=== PATIENT | female | born 1955 | race Caucasian/White ===

== ENCOUNTER 2019-08-13 08:14 | Outpatient (CLI) | payer BC, OTHER ==
[2019-08-13] MEDS ORDERED: OMNIPAQUE 350 MG/ML, 100ML BOTTLE ONE (15:31)
[2019-09-25] MEDS ORDERED: UBID100C24 PO (08:46)
[2019-09-25] MEDS ORDERED: GINK60TA PO (08:46)
[2019-09-25] MEDS ORDERED: MULT1TAB60 PO (08:46)
[2019-09-25] MEDS ORDERED: CHOL10003 PO (08:46)
[2019-09-25] MEDS ORDERED: [UNRECOGNIZED DRUG - OTHER] PO (08:46)
[2019-09-25] MEDS ORDERED: ASTA4CAP PO (08:46)
[2019-09-25] MEDS ORDERED: KRIL500C PO (08:46)
[2019-09-25] MEDS ORDERED: LACT1CAP35 PO (08:46)
== END 2019-08-13 23:59 | disposition home or self-care (01) ==
LOC: CFH 08:14
PROVIDERS: ATTEND Obstetrics & Gynecology
DX: K80.20 Calculus of gallbladder without cholecystitis without obstruction (principal); K76.0 Fatty (change of) liver, not elsewhere classified; M43.26 Fusion of spine, lumbar region; R19.09 Other intra-abdominal and pelvic swelling, mass and lump
CPT/HCPCS: 74177; 82565; Q9967

== ENCOUNTER → 2019-09-25 | Outpatient (CLI) | payer BC ==
[~2019-09-25] MED LIST: ASTA4CAP PO; CHOL10003 PO; GINK60TA PO; KRIL500C PO; LACT1CAP35 PO; MULT1TAB60 PO; UBID100C24 PO; [UNRECOGNIZED DRUG - OTHER] PO
[2019-09-25 09:14] LABS: BASOPHILS # (AUTO) 0.03 x10^3/uL (0-0.1); BASOPHILS % (AUTO) 1 % (0-1); EOSINOPHILS # (AUTO) 0.05 x10^3/uL (0-0.4); EOSINOPHILS % (AUTO) 1 % (1-7); LYMPHOCYTES # (AUTO) 0.98 x10^3/uL (1-3.4); LYMPHOCYTES % (AUTO) 22 % (22-44); MD NO; MEAN CORPUSCULAR HEMOGLOBIN 31.2 pg (27.0-34.8); MEAN CORPUSCULAR HGB CONC 34.5 g/dL (32.4-35.8); MEAN CORPUSCULAR VOLUME 90.4 fL (80-100); MEAN PLATELET VOLUME 9.1 fL (7.4-10.4); MONOCYTES # (AUTO) 0.53 x10^3/uL (0.2-0.8); MONOCYTES % (AUTO) 12 % (2-9); NEUTROPHILS # (AUTO) 2.91 x10^3/uL (1.8-6.8); NEUTROPHILS % (AUTO) 65 % (42-75); PLATELET COUNT 209 x10^3/uL (130-400); RED BLOOD COUNT 5.22 x10^6/uL (3.82-5.3)
[2019-09-25 09:20] LABS: ALANINE AMINOTRANSFERASE 32 U/L (12-78); ALBUMIN 3.5 g/dL (3.4-5.0); ANION GAP 5 mmol/L (5-15); CHLORIDE 110 mmol/L (98-107); CREATININE 0.94 mg/dL (0.55-1.02)
[2019-09-25 09:23] LABS: ALKALINE PHOSPHATASE 59 U/L (45-117); BILIRUBIN,TOTAL 0.4 mg/dL (0.2-1.0); TOTAL PROTEIN 6.9 g/dL (6.4-8.2)
[2019-09-25 09:28] LABS: INTERNATIONAL NORMALIZED RATIO 0.93 (0.93-1.1); PROTHROMBIN TIME 9.9 Seconds (9.6-11.5)
== END | disposition home or self-care (01) ==
LOC: STAR 07:58
PROVIDERS: ATTEND Obstetrics & Gynecology
DX: Z01.818 Encounter for other preprocedural examination (principal); R19.00 Intra-abdominal and pelvic swelling, mass and lump, unspecified site; R87.810 Cervical high risk human papillomavirus (HPV) DNA test positive; N95.0 Postmenopausal bleeding; R87.619 Unspecified abnormal cytological findings in specimens from cervix uteri; Z85.038 Personal history of other malignant neoplasm of large intestine
CPT/HCPCS: 36415; 71046; 80053; 85025; 85610; 85730; 93005

== ENCOUNTER 2019-09-29 09:10 | Day surgery (SDC) | payer BC ==
[~2019-09-29] VITALS: Ht 167.6 cm; Wt 79.4 kg
[2019-09-29] MEDS ORDERED: LACTATED RINGERS 1,000 ML IV SCH (09:40)
[2019-09-29 09:51] VITALS: BP 119/89
[2019-09-29] MEDS ORDERED: CEFOTETAN PMX 2GM/50ML 50 ML IV STA (09:51)
[2019-09-29] MEDS ORDERED: LIDOCAINE-MPF 1%, 2ML INFIL ONE (10:00)
[2019-09-29] MEDS ORDERED: SCOPOLAMINE 1MG PATCH TD SCH (10:00)
[2019-09-29] MEDS ORDERED: FAMOTIDINE 20 MG TABLET PO ONE (10:00)
[2019-09-29] MEDS ORDERED: PROPOFOL 10 MG/ML, 20ML ONE (12:54)
[2019-09-29] MEDS ORDERED: ROPIvacaine/PF 0.5%, 30 ML ONE (12:54)
[2019-09-29] MEDS ORDERED: DEXAMETHASONE 4 MG/ML, 1ML ONE (12:54)
[2019-09-29] MEDS ORDERED: GLYCOPYRROLATE 0.2MG/1ML, 5ML ONE (12:54)
[2019-09-29] MEDS ORDERED: FENTANYL PF 250 MCG/5ML ONE (12:54)
[2019-09-29] MEDS ORDERED: ROCURONIUM 10MG/ML,5ML ONE ×2 (12:54)
[2019-09-29] MEDS ORDERED: MIDAZOLAM 1 MG/ML, 2ML ONE (12:54)
[2019-09-29] MEDS ORDERED: BUPIVACAINE/PF 0.25% ONE (14:07)
[2019-09-29] MEDS ORDERED: EPINEPHRINE 1 MG/ML, 1ML ONE (14:07)
[2019-09-29] MEDS ORDERED: ONDANSETRON 2MG/ML, 2ML ONE (16:13)
== END 2019-09-29 19:15 | disposition home or self-care (01) ==
LOC: OUT 09:10
PROVIDERS: ATTEND Obstetrics & Gynecology
DX: R19.09 Other intra-abdominal and pelvic swelling, mass and lump (principal); C48.2 Malignant neoplasm of peritoneum, unspecified; R87.810 Cervical high risk human papillomavirus (HPV) DNA test positive; N95.0 Postmenopausal bleeding; Z79.899 Other long term (current) drug therapy; Z85.038 Personal history of other malignant neoplasm of large intestine; Z92.21 Personal history of antineoplastic chemotherapy; Z90.721 Acquired absence of ovaries, unilateral; Z90.79 Acquired absence of other genital organ(s); Z98.890 Other specified postprocedural states; Z83.3 Family history of diabetes mellitus; Z80.42 Family history of malignant neoplasm of prostate; Z80.8 Family history of malignant neoplasm of other organs or systems
CPT/HCPCS: 36415; 49321; 86850; 86900; 86923; 88112; 88305; 88331; 88341; 88342; 88360; C1729; C1765; C1769; J0171; J1100; J2250; J2405; J2704; J2795; J3010; J3490; J7120